=== PATIENT | male | born 2000 | race Caucasian/White ===

== ENCOUNTER → 2022-10-08 15:01 | Outpatient (CLI) | payer BC, SELFPAY ==
--- NOTE | ~2022-10-08 | XR_ITS ---
XR ankle RT min 3V DATE: 10/08/2022 15:31 INDICATION: Right ankle injury one week ago. Lateral and medial pain TECHNIQUE: 4 views COMPARISON: None FINDINGS: No fracture or dislocation of the ankle or disruption of the ankle mortise is detected. IMPRESSION: Negative Reviewed, dictated and finalized at location B. IMPRESSION: Negative
== END ==
PROVIDERS: PCP Pediatrics; Visit Provider Pediatrics
DX: S99.911A Unspecified injury of right ankle, initial encounter (principal); X58.XXXA Exposure to other specified factors, initial encounter
CPT/HCPCS: 73610

== ENCOUNTER → 2022-10-29 13:18 | Outpatient (CLI) | payer BC, SELFPAY ==
--- NOTE | ~2022-10-29 | US_ITS ---
EXAMINATION: US scrotum doppler DATE: 10/29/2022 14:19 INDICATION: Left hydrocele. TECHNIQUE: Testicular sonogram utilizing grayscale and Doppler COMPARISON: None. FINDINGS: The right testis measures 5.2 x 2.6 x 2.8 cm. The left testis measures 4.7 x 3.2 x 3.0 cm. Symmetric normal grayscale appearance to both testes. 4 mm echogenic testicular appendage on the left testis. T here is normal vascular flow to both testes. There are bilateral epididymal cysts measuring up 4 mm o n the right and 2 on the left, the largest measuring up to 7 mm. The bilateral epididymides are other mejía normal with normal vascular flow. There is no varicocele or right-sided hydrocele. Moderate to l arge left hydrocele. IMPRESSION: 1. Moderate to large left hydrocele. Reviewed, dictated and finalized at location A.
== END ==
PROVIDERS: PCP Pediatrics; Visit Provider Urology
DX: N50.812 Left testicular pain (principal); N43.3 Hydrocele, unspecified
CPT/HCPCS: 76870; 93976